=== PATIENT | female | born 1985 | race Caucasian/White ===

== ENCOUNTER 2022-04-09 15:12 | Emergency (ER) | payer MEDICAID ==
[~2022-04-09] VITALS: Ht 162.6 cm; Wt 72.7 kg
[2022-04-09] MEDS ORDERED: ALBU90AE IH (15:42)
[2022-04-09] MEDS ORDERED: IBUPROFEN 600 MG TABLET PO ONE (18:00)
[2022-04-09 18:12] LABS: COVID AG,FIA SOURCE NASOPHARYNGEAL
[2022-04-09 18:34] LABS: APPEARANCE,URINE CLEAR (CLEAR); BILIRUBIN,URINE NEGATIVE (NEGATIVE); GLUCOSE, URINE (UA) NEGATIVE (NEGATIVE); KETONES,URINE NEGATIVE (NEGATIVE); LEUKOCYTE ESTERASE ,URINE NEGATIVE (NEGATIVE); NITRATE,URINE NEGATIVE (NEGATIVE); OCCULT BLOOD,URINE NEGATIVE (NEGATIVE); PH,URINE 5.5 (5.0-8.0); PROTEIN,URINE TRACE mg/dL (NEGATIVE); SPECIFIC GRAVITIY, URINE 1.024 (1.003-1.030); UROBILINOGEN,URINE <=1.0 mg/dL (<=1.0)
[2022-04-09 18:53] LABS: INFLUENZA TYPE A NEGATIVE FOR TYPE A (NEGATIVE); INFLUENZA TYPE B NEGATIVE FOR TYPE B (NEGATIVE)
[2022-04-09 19:04] LABS: BACTERIA,URINE Moderate /HPF (None Seen); RBC,URINE None Seen /HPF (0-2)
[2022-04-09] MEDS ORDERED: CEPH-558 PO (19:12)
[2022-04-09] MEDS ORDERED: IBUP-1492 PO (19:12)
[2022-04-09 19:31] VITALS: BP 132/73
== END 2022-04-09 19:58 | disposition home or self-care (01) ==
LOC: EMS 15:18
DX: N12 Tubulo-interstitial nephritis, not specified as acute or chronic (principal); J45.909 Unspecified asthma, uncomplicated; Z90.49 Acquired absence of other specified parts of digestive tract; Z20.822 Contact with and (suspected) exposure to COVID-19; Z98.890 Other specified postprocedural states; V49.88XA Car occupant (driver) (passenger) injured in other specified transport accidents, initial encounter; Y93.89 Activity, other specified; Y92.89 Other specified places as the place of occurrence of the external cause; Y99.8 Other external cause status
CPT/HCPCS: 71045; 81001; 87086; 87186; 87804; 99284